=== PATIENT | male | born 1940 | race Caucasian/White ===

== ENCOUNTER 2017-02-23 17:38 | Inpatient (IN) | payer OTHER ==
[~2017-02-23] VITALS: Ht 162.6 cm; Wt 77.1 kg
--- NOTE | ~2017-02-23 | EEG ---
Electroencephalogram [facility] [address] [place]. [address] NAME: FERNANDO JURADO JR : 42 STATUS : DIS IN PAT#: [id number] AGE: 77 ADM/REG DATE : 02/24/17 MR#: [id number] REPORT SERV DATE: 03/02/17 DICTATED BY: BRYON CERVANTES DATE: 03/02/17 REPORT STATUS : Draft TRANSCRIBED BY: JULIO DATE: 03/02/17 EEG NUMBER: [id number]. REASON FOR EEG: Intermittent neurological deficit. DESCRIPTION: 23 surface electrodes, 10-20 international placement was used. Photic stimulation was performed. Video monitoring was utilized. The background activity consisted of moderate voltage, well organized 8-9 cycles per second located in the posterior head regions. This alpha range activity attenuated well with the eye opening maneuvers. The patient was noted to be awake, drowsy, and asleep throughout the study. During light sleep, increase of slower frequencies was seen in the bilaterally synchronous distribution. The patient was noted to have episodes of snoring and possible sleep apnea. No paroxysmal or epileptiform activity was seen during the study. No significant asymmetry of cerebral activity was present. The patient's quality assurance monitor shows sinus rhythm, rate of approximately 58 to 60 beats per minute. IMPRESSION: THIS EEG IS WITHIN NORMAL RANGE FOR AN AWAKE AND DROWSY STATE. BRIEF PERIODS OF LIGHT SLEEP RECORDED SHOWING NO EVIDENCE OF SIGNIFICANT ABNORMALITIES. EPISODES OF SNORING WERE OBSERVED. RECOMMEND A POLYSOMNOGRAPHY STUDY TO RULE OUT OBSTRUCTIVE SLEEP APNEA. NEUROLOGICAL FOLLOWUP IS RECOMMENDED IF CLINICALLY INDICATED. MARCELLUS/JULIO Bryon Cervantes MD / [id number] CC: MD Rolo Walden M.D.
--- NOTE | ~2017-02-23 | HP ---
History And Physical [place] [id number] [facility] [place]. [address] NAME: FERNANDO JURADO JR : 42 STATUS : ADM Juan PAT#: [id number] AGE: 77 ADM/REG DATE : 02/24/17 MR#: [id number] REPORT SERV DATE: 02/24/17 DICTATED BY: ARNOL SWAIN DATE: 02/23/17 REPORT STATUS : Draft TRANSCRIBED BY: MODJerilyn DATE: 02/23/17 DATE OF ADMISSION: 02/24/2017 CHIEF COMPLAINT: Frequent falls and possible stroke. HISTORY OF PRESENT ILLNESS: The patient is a 77-year-old male with past medical history of hypertension, hyperlipidemia, prostate cancer, status post resection, arthritis, who over the last year has reported that he feels like he has had multiple strokes. He is under the care Dr. Forrest and was already scheduled to have MRI today; however, today, he has had multiple different falls with injury to nose. He has had five falls this year aside speech dysarthria. No fever, chills, does report he always feels slightly unstable. Symptoms occurred acutely today approximately about 1:30, been constant moderate severity. Reports main symptom is his gait instability. No additional pain radiating symptoms. No headache trauma. Did not have any dizziness, blacking out, and no postictal type state. Did not have any loss of bowel or bladder. No fevers or chills. There is nothing that worsen symptoms, nothing relieves symptoms. Symptoms are currently better. I felt like he has had multiple strokes over the last year. Does have active alcohol use with wine, approximately 3 drinks a day. Denies ever having any kind of withdrawal type symptoms. REVIEW OF SYSTEMS: A 10-point review of systems negative except for that noted in the HPI. PAST MEDICAL HISTORY: As stated above. SURGICAL HISTORY: Prostate removal, otherwise negative. FAMILY HISTORY: Colon cancer, but no heart disease, hyperlipidemia, or strokes per the patient. SOCIAL HISTORY: , lives with spouse. No smoking. Three glasses of wine a day. No illicits. ALLERGIES: ALLERGIES TO AMLODIPINE WHICH CAUSES SWELLING. HOME MEDICATIONS: Clonidine, vitamin B12, Lexapro, Hyzaar, metoprolol, Zocor. PHYSICAL EXAMINATION: VITAL SIGNS: The patient's blood pressure 131/61, temperature 98.1, pulse 66, respirations 16, O2 saturation 99% on room air. GENERAL: No acute distress. Calm, pleasant, resting. EYES: No scleral icterus. EOMI. ENT: Nares patent. Tongue midline. RESPIRATORY: Clear to auscultation. No wheezes, rales. CV: Regular rate. No rubs. GI: Soft, nontender, nondistended. Bowel sounds positive. History And Physical [address] [place] [address] NAME: FERNANDO JURADO JR : 44 STATUS : ADM Juan PAT#: [id number] AGE: 77 ADM/REG DATE : 02/24/17 MR#: [id number] REPORT SERV DATE: 02/24/17 DICTATED BY: ARNOL SWAIN DATE: 02/23/17 REPORT STATUS : Draft TRANSCRIBED BY: MODJerilyn DATE: 02/23/17 : Deferred. MUSCULOSKELETAL: Moves all extremities. SKIN: Warm and dry. LYMPH: No cervical or supraclavicular lymphadenopathy. HEME: No bleeding or bruising. NEUROLOGIC: Does have symmetrical strength in upper and lower extremities. No tremors. Did recently receive Ativan in the emergency room. No drift. Has full sensation in upper and lower extremities. Symmetrical smile. Tongue midline. Does have mild dysarthria. Symmetrical wrinkled brow and cheek inflation. Symmetrical shoulder shrug. Does have hyperreflexic bilateral equal knee reflexes, but somewhat diminished Achilles reflex. BR reflexes in hands are slightly hyperreflexic and hand reflexes are symmetrical in hands. PSYCHIATRIC: Appropriate mood and affect. CIWA score is 0 currently. LABORATORY DATA: Brain without contrast, negative for acute strokes, moderate diffuse cerebral involutional changes, mild deep white matter, chronic microvascular ischemic changes. CMP; BUN and creatinine 46 and 2.9, last reported creatinine 1.04. Potassium of 4.6. LFTs within normal limits. Troponin negative. CBC: WBC count 5.9, H and H 12.2 and 37.1, platelets of 160. INR 1.0. EKG, normal sinus rhythm, rate of 62, QTc 477, no acute dynamic ST changes. ASSESSMENT: 1. Transient ischemic attack. 2. Frequent falls. 3. Hypertension. 4. Hyperlipidemia. 5. Alcohol use. 6. Acute kidney injury, questionable chronic kidney disease. PLAN: 1. For TIA, positive gait, unsteadiness with fear of falling and dysarthria, does have irregular reflexes, and knees with hyperreflexia, but slightly diminished in legs. Does have notable alcohol history also. Symptoms have been occurring approximately a year now, but it is reported to have scheduled MRI today with Dr. Forrest; but due to repeated falls, we will rule out TIA type symptoms with new dysarthria. Stroke order set initiated. Due to creatinine, we will not be able to obtain MRA. We will do ultrasound carotids, MRI limited, and echocardiogram. 2. Frequent falls, five times in a year, questionable secondary to possible TIAs. B12, folate. Check CPK. 3. Hypertension, monitor. 4. Hyperlipidemia, on statin. Check CPK and lipid profile. 5. Alcohol use, three wine drinks a day. We will place on thiamine replacement, detox protocol monitoring. CIWA currently 0; however, did receive 0.5 mg Ativan in the emergency room. 6. GILBERTO, questionable CKD, unclear. Has had prostatectomy in the past. We will check ultrasound, urine studies, CPK. Hold nephrotoxins with ARB and HCTZ. History And Physical [address] [address] NAME: FERNANDO JURADO : 44 STATUS : ADM Juan PAT#: [id number] AGE: 77 ADM/REG DATE : 02/24/17 MR#: [id number] REPORT SERV DATE: 02/24/17 DICTATED BY: ARNOL SWAIN DATE: 02/23/17 REPORT STATUS : Draft TRANSCRIBED BY: MODL DATE: 02/23/17 DISPOSITION: Pending findings from above. DDN/MODL Arnol Swain MD / [id number] CC: Kierra Daigle MD
--- NOTE | ~2017-02-23 | CN ---
Consultation Report [facility] [address] [place]. [address] NAME: FERNANDO JURADO JR : 44 STATUS : ADM Juan PAT#: [id number] AGE: 77 ADM/REG DATE : 02/24/17 MR#: [id number] REPORT SERV DATE: 02/24/17 DICTATED BY: BRYON CERVANTES DATE: 02/24/17 REPORT STATUS : Draft TRANSCRIBED BY: MODJerilyn DATE: 02/24/17 NEUROLOGY CONSULTATION DATE OF CONSULTATION: 02/24/2017 REASON FOR CONSULTATION: Possible stroke. NEUROLOGIST: Logan Forrest M.D. HOSPITALIST: Kierra Daigle M.D. HISTORY OF PRESENT ILLNESS: The patient is a 77-year-old male, who came to the hospital because of frequent falls. He also came to the hospital due to the insistence of his daughters and his . According to the patient, he has having trouble with falls for approximately three years. He experiences imbalance and has difficulty not only going up the stairs, but particularly going down the stairs. He states he is fearful of going down the stairs because of falling. According to the patient's family he has fallen at least five times in the last year. Particularly note his daughter mentions that yesterday they were chatting and he seem to get confused. He forgot what [employer] that she worked for. This was bothersome because she work for the same [employer] that he did. He seem to have somewhat blank stare on his face and he got up and walked towards the bedroom. He lie down the bed and slept for a period of time until his woke him up and said we are going to the hospital. The patient's also mentioned that the other day she thought he was having a seizure when he fell in the bathroom. When questioned specifically about his alcohol consumption, the patient mentions that he drinks a couple of glasses of alcohol everyday. His daughters interjected and stated that he drinks a couple of bottles of wine a day. To clarify things, the patient's mentioned that he drink bottles of wine a day until three weeks ago when he cut back on his alcohol consumption. He had spoken to Dr. Forrest, who told him to drink two glasses of wine a day. He has adhered to that policy over the last three weeks and has done very well without any signs of withdrawal. The patient states he has never been through activity withdrawal. However, he has had rare days when he is not drink alcohol. PAST MEDICAL HISTORY: Hypertension, hyperlipidemia, prostate cancer, arthritis, frequent falls, and alcohol abuse. PAST SURGICAL HISTORY: Prostate removal. MEDICATIONS: Home medication list consist of Catapres 0.1 mg twice a day, vitamin B12 of 1000 mcg every morning, Lexapro 10 mg a day, Hyzaar 100/12.5 every morning, Lopressor 50 mg b.i.d., and Zocor 40 mg daily. ALLERGIES: AMLODIPINE. Consultation Report [address] [place]. [address] NAME: FERNANDO JURADO JR : 44 STATUS : ADM Juan PAT#: [id number] AGE: 77 ADM/REG DATE : 02/24/17 MR#: [id number] REPORT SERV DATE: 02/24/17 DICTATED BY: BRYON CERVANTES DATE: 02/24/17 REPORT STATUS : Draft TRANSCRIBED BY: JULIO DATE: 02/24/17 SOCIAL HISTORY: The patient is . He lives with his spouse. He is a retired commercial real estate agent. He does not smoke. He currently drink two glasses of wine a day. Does not use illicit drugs. FAMILY HISTORY: The patient's father at the age of 84 from Alzheimer and questionable stroke. His mother at the age of 78 from colon cancer. REVIEW OF SYSTEMS: For pertinent positives, please refer to HPI. PHYSICAL EXAMINATION: VITAL SIGNS: The patient is a 77-year-old male, who weighs 77.1 kilos and stands 162.6 cm tall. He is afebrile. Heart rate 64, respiratory rate 16, O2 saturations on room air 97%, blood pressure 158/72. NEURO: The patient is alert. He is oriented x4. Speech is slightly dysarthric (chronic). Language is fluent. He has no anomia or aphasia. Pupils are 3 mm. PERRLA. EOMs are intact. No cranial nerves deficits. [id number], no ataxia; however, the patient does have spine tremor bilaterally. There is no pronator drift. No asterixis, dysmetria. Upper extremity strength is 5/5 bilaterally. No reported sensory deficits. Upper extremity DTRs are 3+ bilaterally. Lower extremity strength is 4/5 bilaterally. The patient does have hyperactive patellar reflexes and clonus noted bilaterally at the knee. Downgoing toes, he does have a slight bit of clonus at the ankles more so at the knee, however. He does have intact position sense, diminished sensation in the feet. Diminished temperature and vibratory sense from the feet to the mid calf bilaterally. The patient can get out of the bed with minimal assistance. He has wide based slightly spastic gait. Romberg unable to tandem. LABORATORY DATA: CBC is normal. BMP shows a BUN of 46 and a creatinine of 2.58. Albumin 3.4. CT of the brain without contrast. No acute stroke. Moderate cerebral involutional changes. Echocardiogram, EF 55% to 60%, mild diastolic dysfunction. Bubble study negative. Carotid duplex study category 1 disease. MRI of the brain old deep white matter ischemic changes atrophy. ASSESSMENT/PLAN: 1. Ataxia. Multiple etiology, the patient does have a wide based spastic gait. At this point, I suspect cervical stenosis/myelopathy. The patient will undergo an MRI of the C-spine without gadolinium. PT/OT will be consulted. 2. Peripheral neuropathy. 3. 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 4. Possible seizure versus near syncope. The patient will undergo an EEG. He will be placed on seizure precautions. We would also like to do an MRA of the head and neck with gadolinium, but his kidney function is poor, so that will be held for now. We will obtain orthostatic vital signs q. shift. 5. Alcohol abuse. The patient will be placed on thiamine, folate, CIWA protocol. Consultation Report [place] [id number] [facility] [place]. [address] NAME: FERNANDO JURADO : 44 STATUS : ADM Juan PAT#: [id number] AGE: 77 ADM/REG DATE : 02/24/17 MR#: [id number] REPORT SERV DATE: 02/24/17 DICTATED BY: BRYON CERVANTES DATE: 02/24/17 REPORT STATUS : Draft TRANSCRIBED BY: MODL DATE: 02/24/17 6. Acute kidney injury. This will be managed per hospitalist team. Thank you again for including us in consultation. We will follow with you. Dr. Bryon Cervantes my collaborating physician has been made aware of the patient's case and plan of care. DICTATED BY: Ana Celaya DNP, [facility]- DIANA/JULIO Bryon Cervantes MD / [id number] CC: MD Rolo Walden M.D.
--- NOTE | ~2017-02-23 | DS ---
Discharge Summary [address] [place]. [address] NAME: FERNANDO JURADO JR : 44 STATUS : DIS IN PAT#: [id number] AGE: 77 ADM/REG DATE : 02/24/17 MR#: [id number] REPORT SERV DATE: 02/27/17 DICTATED BY: KIERRA BARRAZA DATE: 02/26/17 REPORT STATUS : Draft TRANSCRIBED BY: MODJerilyn DATE: 02/26/17 ADMISSION DATE: 02/24/2017 DISCHARGE DATE: 02/26/2017 CONSULTATION: Neurology, Dr. Bryon Cervantes. DISCHARGE DIAGNOSES: 1. Ataxia. 2. Vitamin B12 deficiency. 3. Recurrent falls. 4. Hypertension. 5. Hyperlipidemia. 6. Alcohol abuse. 7. Acute kidney injury. 8. Chronic kidney disease, stage 3. 9. Transient ischemic attack. 10.Depression. IMAGIN. Brain CT without contrast, impression:. a. No acute CVA or other acute intracranial pathology identified. b. Moderate diffuse cerebral involutional changes and mild deep white matter chronic microvascular changes. 2. Carotid Doppler ultrasound, impression:. a. Findings compatible with category one disease (less than 50% stenosis) involving the cervical portions of the right and left internal carotid arteries. b. The vertebral arteries are patent with antegrade flow. 3. Echocardiogram, summary:. a. Normal left ventricular systolic function with estimated ejection fraction of 55% to 60%. b. Normal right ventricular chamber size and systolic function. c. Mild diastolic dysfunction. d. No significant valvular regurgitation or stenosis. e. Bubble study, negative at rest after provocation with Valsalva. 4. MRI of brain without contrast, impression:. a. Evidence for old deep white matter ischemic changes. b. Atrial fib. c. Also mild brain atrophy, questionable possible Parkinson. d. Comparison with 02/23/2017 CT. 5. Renal ultrasound, impression:. a. Normal non-obstructed but small symmetric kidneys. b. Aorta vena cava and urinary bladder normal. 6. MRI of cervical spine, impression:. a. Spondylitic changes are present with encroachment into the left neural foramina, C5-C6, with questionable left C6 nerve root findings clinically. b. Intradiscal degenerative changes, C6-C7 and C7-T1, cord not compressed. Discharge Summary [address] [place]. [address] NAME: FERNANDO JURADO JR : 44 STATUS : DIS IN PAT#: [id number] AGE: 77 ADM/REG DATE : 02/24/17 MR#: [id number] REPORT SERV DATE: 02/27/17 DICTATED BY: KIERRA BARRAZA DATE: 02/26/17 REPORT STATUS : Draft TRANSCRIBED BY: JULIO DATE: 02/26/17 7. MRI of thoracic spine, impression: Thoracic column demonstrates no evidence of cord compression. The cord appears to be intact and normal. HISTORY OF PRESENT ILLNESS: For detailed HPI, please make reference to Dr. Lang Ha's dictation on 02/24/2017. In brief, this is a 77-year-old male with a past medical history of hypertension, hyperlipidemia, and prostate cancer, status post resection, who presented to the emergency department with complaints of recurrent falls, dysarthria, and unstable gait. PHYSICAL EXAMINATION: VITAL SIGNS: Vitals on presentation, blood pressure 131/61, temperature 98.1, pulse 66, respiratory rate 16, and saturating 99% on room air. NEUROLOGIC: Strength 4/4 in all extremities. Noted to have mild dysarthria. LABORATORY DATA: Creatinine 2.9 (baseline 1.04). An assessment of acute kidney injury, possible TIA, and ataxia was made in the emergency room. The patient was admitted to the Hospitalist Service. HOSPITAL COURSE: 1. TIA. The patient had a CT scan in the emergency room that was negative for acute intracranial process. No evidence of infarct or hemorrhage. Neurology was consulted who recommended MRI of the brain. MRI showed no evidence of acute infarct. A detailed report as dictated above. The patient's dysarthria subsequently improved during the course of this admission. The patient was advised to continue aspirin 325 mg and high- dose statin. 2. Frequent falls due to ataxia likely related to vitamin B12 deficiency. The patient's vitamin B12 was found to be within borderline of lower limit. The patient's vitamin B12 supplement was switched to IM vitamin B prior to discharge. The patient reports some improvement in gait prior to discharge. Other possible differential for ataxia includes excessive alcohol use. The patient was counseled extensively about alcohol cessation prior to discharge. The patient agreed to discontinue alcohol use. 3. Acute kidney injury on chronic kidney disease, stage 3. The patient's creatinine was 2.9 on presentation likely due to reduced p.o. intake. The patient has been noted to have decreased appetite with decreased food intake and hardly drinks water, prefers to drink alcohol. The patient was continued on IV fluid resuscitation, creatinine gradually trended down at the time of discharge, creatinine trended down to 1.6. The patient was advised to continue liberal fluid intake and follow up with primary care physician. DISCHARGE MEDICATIONS: 1. Aspirin 325 mg p.o. daily. 2. Vitamin B12, 1000 mcg IM supplement. 3. Folic acid 1 mg p.o. daily. 4. Lisinopril 10 mg p.o. daily. 5. Metoprolol 50 mg p.o. b.i.d. 6. Clonidine 0.1 mg p.o. b.i.d. Discharge Summary [address] [address] NAME: FERNANDO JURADO : 44 STATUS : DIS IN PAT#: [id number] AGE: 77 ADM/REG DATE : 02/24/17 MR#: [id number] REPORT SERV DATE: 02/27/17 DICTATED BY: KIERRA BARRAZA DATE: 02/26/17 REPORT STATUS : Draft TRANSCRIBED BY: JULIO DATE: 02/26/17 FOLLOWUP: Follow up with Neurology with Dr. Hoang as an outpatient. Follow up with primary care physician within one to two weeks of discharge. DISCHARGE ACTIVITY: As tolerated. Greater than 30 minutes was used to dictate this discharge summary, review medication, advise the patient on discharge plans, and followup. VIVIO/JULIO Kierra Barraza MD / [id number] CC: MD Rolo Walden M.D.
[~2017-02-23 17:38] MED LIST: HYDROCHLOROT25 MG PO; HYZAAR1 TAB PO; LOP100 PO; ZOCOR40 PO
[2017-02-23 19:56] LABS: BASOPHILS 0.5 %; BASOPHILS ABSOLUTE 0.03 10/3/uL (0.0-0.16); EOSINOPHILS 3.5 %; EOSINOPHILS ABSOLUTE 0.21 10/3/uL (0.0-0.53); ER CBC TAT 0 Hrs 10 Mins; IMMATURE GRANULOCYTES 0.3 %; IMMATURE GRANULOCYTES ABSOLUTE 0.02 10/3/uL (0.0-0.11); LYMPHOCYTES 14.5 %; LYMPHOCYTES ABSOLUTE 0.86 10/3/uL (0.67-4.30); MEAN CORPUS HGB CONC 32.9 g/dL (32.0-36.0); MEAN CORPUSCULAR HEMOGLOB 32.4 pg (26.0-34.0); MEAN PLATELET VOLUME 10.5 fL (9.2-13.0); MONOCYTES 9.6 %; MONOCYTES ABSOLUTE 0.57 10/3/uL (0.21-1.20); NEUTROPHILS 71.6 %; NEUTROPHILS ABSOLUTE 4.23 10/3/uL (2.02-8.40); RBC DISTRIBUTION WIDTH 12.8 % (12.0-16.0); WHITE BLOOD CELLS 5.9 10/3/uL (4.5-10.5)
[2017-02-23 19:57] LABS: HEMATOCRIT 37.1 % (40.0-51.0); HEMOGLOBIN 12.2 g/dL (13.6-17.8); MANUAL DIFF NO %; MEAN CORPUSCULAR VOLUME 98.7 fL (80-100); PLATELET COUNT 160 10/3/uL (150-400); RED CELL COUNT 3.76 10/6/uL (4.7-6.1)
[2017-02-23 20:06] LABS: PARTIAL THROMBO TIME 28.1 SEC (22.5-37.2); PROTIME (NOT ORD) 13.3 SEC (12.0-14.5)
[2017-02-23 20:09] LABS: A/G RATIO 0.9 (0.7-1.9); ALBUMIN 3.6 G/DL (3.5-5.0); ALKALINE PHOSPHATASE 78 U/L (45-117); CHLORIDE, SERUM 100 MMOL/L (96-112); CO2 (CARBON DIOXIDE) 26 MMOL/L (24-34); GFR AFRICAN AMERICAN 23 ML/MIN (>=60); GFR NON AFRICAN AMERICAN 20 ML/MIN (>=60); GLUCOSE, SERUM 106 MG/DL (60-99); POTASSIUM, SERUM 4.6 MMOL/L (3.5-5.3); SGOT(AST) 14 U/L (5-40); SGPT(ALT) 18 U/L (5-65); SODIUM, SERUM 137 MMOL/L (135-148); TOTAL BILIRUBIN 0.8 MG/DL (0-1.2); TOTAL PROTEIN 7.6 G/DL (6.0-8.5); TROPONIN I <0.02 NG/ML (<0.05)
[2017-02-23 20:11] LABS: BUN (BLOOD UREA NITROGEN) 46 MG/DL (6-23)
[2017-02-23] MEDS ORDERED: LEXAPRO10 PO (20:36)
[2017-02-23] MEDS ORDERED: LOP50 PO (20:37)
[2017-02-23] MEDS ORDERED: CAT1 PO (20:37)
[2017-02-23] MEDS ORDERED: ZOCOR40 PO (20:38)
[2017-02-23] MEDS ORDERED: HYZAAR1 TAB PO (20:38)
[2017-02-23] MEDS ORDERED: B121000P IM (20:38)
[2017-02-24 03:10] LABS: BASOPHILS 0.4 %; BASOPHILS ABSOLUTE 0.02 10/3/uL (0.0-0.16); EOSINOPHILS 4.7 %; EOSINOPHILS ABSOLUTE 0.22 10/3/uL (0.0-0.53); HEMATOCRIT 34.9 % (40.0-51.0); HEMOGLOBIN 11.9 g/dL (13.6-17.8); IMMATURE GRANULOCYTES 0.2 %; IMMATURE GRANULOCYTES ABSOLUTE 0.01 10/3/uL (0.0-0.11); LYMPHOCYTES 22.8 %; LYMPHOCYTES ABSOLUTE 1.06 10/3/uL (0.67-4.30); MEAN CORPUS HGB CONC 34.1 g/dL (32.0-36.0); MEAN CORPUSCULAR HEMOGLOB 33.6 pg (26.0-34.0); MEAN CORPUSCULAR VOLUME 98.6 fL (80-100); MEAN PLATELET VOLUME 10.4 fL (9.2-13.0); MONOCYTES 7.5 %; MONOCYTES ABSOLUTE 0.35 10/3/uL (0.21-1.20); NEUTROPHILS 64.4 %; NEUTROPHILS ABSOLUTE 2.99 10/3/uL (2.02-8.40); PLATELET COUNT 153 10/3/uL (150-400); RBC DISTRIBUTION WIDTH 12.7 % (12.0-16.0); RED CELL COUNT 3.54 10/6/uL (4.7-6.1); WHITE BLOOD CELLS 4.7 10/3/uL (4.5-10.5)
[2017-02-24 03:12] LABS: MANUAL DIFF NO %
[2017-02-24 03:18] LABS: INTERNATIONAL NORMAL RATI 1.1 UNITS (-); PARTIAL THROMBO TIME 28.6 SEC (22.5-37.2)
[2017-02-24 04:24] LABS: A/G RATIO 0.9 (0.7-1.9); ALBUMIN 3.4 G/DL (3.5-5.0); ALKALINE PHOSPHATASE 76 U/L (45-117); BUN (BLOOD UREA NITROGEN) 46 MG/DL (6-23); CALCIUM, SERUM 8.7 MG/DL (8.5-10.4); CHLORIDE, SERUM 101 MMOL/L (96-112); CHOL/HDL RATIO(NOT ORDER) 2.1 (0-5); CHOLESTEROL 156 MG/DL (< 200); CO2 (CARBON DIOXIDE) 26 MMOL/L (24-34); CPK 58 U/L (0-200); CREATININE 2.58 MG/DL (0.70-1.30); GFR AFRICAN AMERICAN 27 ML/MIN (>=60); GFR NON AFRICAN AMERICAN 23 ML/MIN (>=60); GLOBULIN 3.8 G/DL (2.5-4.1); GLUCOSE, SERUM 97 MG/DL (60-99); HDL CHOLESTEROL 73 MG/DL (> 39); LDL CHOLESTEROL 64 MG/DL (< 130); NON-HDL CHOLESTEROL 83 MG/DL (< 160); POTASSIUM, SERUM 3.7 MMOL/L (3.5-5.3); SGOT(AST) 11 U/L (5-40); SGPT(ALT) 17 U/L (5-65); SODIUM, SERUM 138 MMOL/L (135-148); TOTAL BILIRUBIN 0.8 MG/DL (0-1.2); TOTAL PROTEIN 7.2 G/DL (6.0-8.5); TRIGLYCERIDE 97 MG/DL (< 150); TROPONIN I <0.02 NG/ML (<0.05)
[2017-02-24 04:25] LABS: CK-MB 1.1 NG/ML
[2017-02-24 04:35] LABS: ASCORBIC ACID (UR NOT ORDER) NEG (NEG); BILIRUBIN, URINE NEGATIVE (NEG); KETONE, URINE TRACE MG/DL (NEG); LEUKOCYTE ESTERASE(NOT OR NEG (NEG); WBC (NOT ORDERED) (RFLEX) < 1 (0-5)
[2017-02-24 12:57] LABS: CPK 51 U/L (0-200); TROPONIN I <0.02 NG/ML (<0.05)
[2017-02-24 12:58] LABS: CK-MB 0.9 NG/ML
[2017-02-24 19:27] LABS: CK-MB 0.8 NG/ML; CPK 51 U/L (0-200); TROPONIN I <0.02 NG/ML (<0.05)
[2017-02-25 03:42] LABS: BASOPHILS 0.2 %; BASOPHILS ABSOLUTE 0.01 10/3/uL (0.0-0.16); EOSINOPHILS ABSOLUTE 0.22 10/3/uL (0.0-0.53); HEMATOCRIT 32.4 % (40.0-51.0); HEMOGLOBIN 10.8 g/dL (13.6-17.8); IMMATURE GRANULOCYTES 0.2 %; IMMATURE GRANULOCYTES ABSOLUTE 0.01 10/3/uL (0.0-0.11); LYMPHOCYTES 24.8 %; LYMPHOCYTES ABSOLUTE 1.09 10/3/uL (0.67-4.30); MEAN CORPUS HGB CONC 33.3 g/dL (32.0-36.0); MEAN CORPUSCULAR HEMOGLOB 32.9 pg (26.0-34.0); MEAN CORPUSCULAR VOLUME 98.8 fL (80-100); MEAN PLATELET VOLUME 10.3 fL (9.2-13.0); MONOCYTES ABSOLUTE 0.35 10/3/uL (0.21-1.20); NEUTROPHILS 61.8 %; NEUTROPHILS ABSOLUTE 2.71 10/3/uL (2.02-8.40); PLATELET COUNT 134 10/3/uL (150-400); RBC DISTRIBUTION WIDTH 12.7 % (12.0-16.0); RED CELL COUNT 3.28 10/6/uL (4.7-6.1); WHITE BLOOD CELLS 4.4 10/3/uL (4.5-10.5)
[2017-02-25 03:43] LABS: MANUAL DIFF NO %
[2017-02-25 03:51] LABS: BUN (BLOOD UREA NITROGEN) 39 MG/DL (6-23); CALCIUM, SERUM 8.4 MG/DL (8.5-10.4); CHLORIDE, SERUM 105 MMOL/L (96-112); CO2 (CARBON DIOXIDE) 26 MMOL/L (24-34); CREATININE 1.74 MG/DL (0.70-1.30); GFR AFRICAN AMERICAN 43 ML/MIN (>=60); GFR NON AFRICAN AMERICAN 38 ML/MIN (>=60); GLUCOSE, SERUM 112 MG/DL (60-99); PHOSPHORUS, SERUM 2.8 MG/DL (2.5-4.5); POTASSIUM, SERUM 3.8 MMOL/L (3.5-5.3); SODIUM, SERUM 138 MMOL/L (135-148)
[2017-02-26 05:35] LABS: BASOPHILS 0.4 %; BASOPHILS ABSOLUTE 0.02 10/3/uL (0.0-0.16); EOSINOPHILS 5.8 %; EOSINOPHILS ABSOLUTE 0.29 10/3/uL (0.0-0.53); HEMATOCRIT 32.2 % (40.0-51.0); HEMOGLOBIN 10.7 g/dL (13.6-17.8); IMMATURE GRANULOCYTES 0.4 %; IMMATURE GRANULOCYTES ABSOLUTE 0.02 10/3/uL (0.0-0.11); LYMPHOCYTES 20.2 %; LYMPHOCYTES ABSOLUTE 1.01 10/3/uL (0.67-4.30); MEAN CORPUS HGB CONC 33.2 g/dL (32.0-36.0); MEAN CORPUSCULAR HEMOGLOB 32.9 pg (26.0-34.0); MEAN CORPUSCULAR VOLUME 99.1 fL (80-100); MEAN PLATELET VOLUME 10.5 fL (9.2-13.0); MONOCYTES 7.2 %; MONOCYTES ABSOLUTE 0.36 10/3/uL (0.21-1.20); PLATELET COUNT 123 10/3/uL (150-400); RBC DISTRIBUTION WIDTH 12.8 % (12.0-16.0); RED CELL COUNT 3.25 10/6/uL (4.7-6.1)
[2017-02-26 05:37] LABS: MANUAL DIFF NO %
[2017-02-26 05:50] LABS: CALCIUM, SERUM 8.7 MG/DL (8.5-10.4); CHLORIDE, SERUM 110 MMOL/L (96-112); CO2 (CARBON DIOXIDE) 25 MMOL/L (24-34); CREATININE 1.67 MG/DL (0.70-1.30); GFR AFRICAN AMERICAN 46 ML/MIN (>=60); GFR NON AFRICAN AMERICAN 39 ML/MIN (>=60); GLUCOSE, SERUM 98 MG/DL (60-99); PHOSPHORUS, SERUM 2.8 MG/DL (2.5-4.5); SODIUM, SERUM 142 MMOL/L (135-148)
[2017-02-26 05:51] LABS: BUN (BLOOD UREA NITROGEN) 32 MG/DL (6-23); POTASSIUM, SERUM 4.6 MMOL/L (3.5-5.3)
[2017-02-26] MEDS ORDERED: ASA5GR PO (18:38)
[2017-02-26] MEDS ORDERED: FOLIC PO (18:39)
[2017-02-26] MEDS ORDERED: LIPITOR80 MG PO (18:39)
== END 2017-02-26 19:10 | disposition home or self-care (01) | DRG 683 ==
LOC: ENRESERV → ENRESERVDT → ENRESERVTM → ER 17:38 → CDU2 02-24 00:11 → CDU1 02-24 00:11 → 1SO 02-24 00:11 → CDU2 02-24 00:31 → CDU1 02-25 17:12 → 1SO 02-25 20:46
PROVIDERS: Emergency Medicine; Hospitalist
DX: N17.9 Acute kidney failure, unspecified (principal); G45.9 Transient cerebral ischemic attack, unspecified; G31.89 Other specified degenerative diseases of nervous system; M47.12 Other spondylosis with myelopathy, cervical region; G20 Parkinson's disease; G95.9 Disease of spinal cord, unspecified; M48.02 Spinal stenosis, cervical region; G62.9 Polyneuropathy, unspecified; F10.10 Alcohol abuse, uncomplicated; Z91.81 History of falling; E78.5 Hyperlipidemia, unspecified; Z85.46 Personal history of malignant neoplasm of prostate; E53.8 Deficiency of other specified B group vitamins; I12.9 Hypertensive chronic kidney disease with stage 1 through stage 4 chronic kidney disease, or unspecified chronic kidney disease; N18.3 Chronic kidney disease, stage 3 (moderate); F32.9 Major depressive disorder, single episode, unspecified; R27.0 Ataxia, unspecified
CPT/HCPCS: 70450; 70551-52; 71020; 72141; 72146; 76775; 80048; 80053; 80061; 81001; 82140; 82306; 82533; 82550; 82553; 82570; 82607; 83036; 83735; 83935; 84100; 84300; 84443; 84484; 85025; 85610; 85730; 92523-GN; 93005; 93306; 93880; 95819; 96374; 97161-GP; 97165-GO; 97535-GO; 99285; A9270-GY; J3411